=== PATIENT | male | born 1960 | race African-American/Black ===

== ENCOUNTER 2017-08-04 15:27 | Emergency (ER) | payer MEDICAID ==
[~2017-08-04] VITALS: Ht 175.3 cm; Wt 91.0 kg
[~2017-08-04 15:27] MED LIST: OTC ANTACIDS; SOMA; VIC
[2017-08-04] MEDS ORDERED: SODIUM CHLORIDE 0.9% 1,000 ML IV ONE (18:09)
[2017-08-04] MEDS ORDERED: KETOROLAC 30MG/ML VIAL IV STA (18:09)
[2017-08-04] MEDS ORDERED: ONDANSETRON HCL 4MG/2ML VIAL IV STA (18:09)
[2017-08-04 18:32] LABS: BASOPHILS % 0.5 % (0.0-2.0); EOSINOPHILS % 0.6 % (0.0-5.0); HEMATOCRIT. 41.9 % (42.0-52.0); HEMOGLOBIN. 14.4 g/dL (14.0-18.0); LYMPHOCYTES % 19.7 % (20.0-50.0); MEAN CORPUSCULAR HEMOGLOBIN 32.5 pg (28.0-32.0); MEAN CORPUSCULAR VOLUME 94.8 fL (80.0-94.0); MEAN PLATELET VOLUME 8.1 fl (7.4-10.4); MONOCYTES % 5.3 % (2.0-8.0); NEUTROPHILS % 73.9 % (40.0-76.0); PLATELET 250 x1000/uL (130-400); RED BLOOD CELL COUNT 4.42 mill/uL (4.7-6.1); RED CELL DISTRIBUTION WIDTH 13.4 % (11.6-14.6)
[2017-08-04 18:37] LABS: CHLORIDE 104 mEq/L (98-107)
[2017-08-04 18:45] LABS: INR 1.1; PROTHROMBIN TIME 11.6 sec (9.4-11.6)
[2017-08-04] MEDS ORDERED: MAGNESIUM/ALUMINUM HYDROXIDE/SIMETHICONE 30ML UDC PO ONE (20:45)
[2017-08-04] MEDS ORDERED: PANTOPRAZOLE SODIUM 40 MG/VIAL IV ONE (20:45)
[2017-08-04 21:53] VITALS: BP 175/99
== END 2017-08-04 22:53 | disposition home or self-care (01) ==
LOC: ER 15:42
DX: R10.33 Periumbilical pain (principal); R11.0 Nausea; I10 Essential (primary) hypertension; E11.9 Type 2 diabetes mellitus without complications; Z86.73 Personal history of transient ischemic attack (TIA), and cerebral infarction without residual deficits
CPT/HCPCS: 36415; 74176; 80053; 83690; 85025; 85610; 93005; 96361; 96374; 96375; 99285; C9113; J1885; J2405; J7030; Z7610